=== PATIENT | female | born 1960 | race Caucasian/White ===

== ENCOUNTER → 2017-05-13 | Outpatient (CLI) | payer OTHER | LOC: BMCIMAGING 10:59 | PROVIDERS: ATTEND Internal Medicine Rheumatology | DX: M79.641 Pain in right hand (principal); M79.642 Pain in left hand; M79.671 Pain in right foot; M79.672 Pain in left foot ==

== ENCOUNTER → 2018-01-27 | Outpatient (CLI) | payer OTHER | DX: K76.9 Liver disease, unspecified (principal) | CPT/HCPCS: 76705-PO ==

== ENCOUNTER → 2018-02-17 | Outpatient (CLI) | payer OTHER ==
[~2018-02-17] MED LIST: IOPAMIDOL (ISOVUE-300) 100 ML BTL ONE
== END ==
LOC: CIMAGING 10:11
PROVIDERS: ATTEND Family Medicine
DX: K76.9 Liver disease, unspecified (principal); K59.00 Constipation, unspecified
CPT/HCPCS: 74160-PO; 82565-PO; Q9967